=== PATIENT | male | born 1950 | race Caucasian/White ===

== ENCOUNTER 2016-08-17 07:38 | Emergency (ER) | payer OTHER ==
[2016-08-17] MEDS ORDERED: IOPAMIDOL 300 (61%) 150 ML VIAL IV ONE (07:39)
[2016-08-17] MEDS ORDERED: ONDANSETRON 4 MG/2ML 2 ML VIAL ONE (08:07)
[2016-08-17] MEDS ORDERED: SODIUM CHLORIDE 0.9% 1,000 ML ONE ×2 (08:08→11:10)
[2016-08-17 08:22] LABS: ABSOLUTE NEUTROPHIL COUNT 15.4 K/mm3 (1.8-7.7); BASO # 0.1 K/mm3 (0.0-0.2); BASO % 0.5 % (0.2-1.0); EOS % 0.1 % (0.9-2.9); HEMATOCRIT 53.1 % (32.0-52.0); HEMOGLOBIN 18.3 gm/l (14.0-18.0); IMM NEUT # 0.1 K/mm3 (0-0.2); IMM NEUT% 0.8 % (0-1); LYMPH % 11.2 % (15-45); MEAN CELL VOLUME 88.6 fl (80.0-94.0); MEAN CORPUSCULAR HEMOGLOBIN 30.6 pg (27.0-31.0); MEAN CORPUSCULAR HGB CONC 34.5 g/dl (33.0-37.0); MEAN PLATELET VOLUME 11.1 fl (7.4-10.4); MONO # 0.5 (0.0-0.8); MONO % 2.6 % (4-12); NEUT % 84.8 % (43-75); PLATELET COUNT 156 K/mm3 (130-400); RED CELL DISTRIBUTION WIDTH 13.4 % (11.5-14.5)
[2016-08-17] MEDS ORDERED: MAALOX/LIDO2%VISC/SIMETHICONE 40 ML BOT ONE (08:22)
[2016-08-17 08:44] LABS: ALB/GLOB RATIO 1.6 (>1.0); ALBUMIN 4.6 gm/dL (3.5-5.7); CALCIUM 10.4 mg/dL (8.6-10.3)
[2016-08-17 09:02] LABS: PLATELET ESTIMATE FEW PLT CLUMPS (NORMAL)
[2016-08-17 09:26] LABS: SPECIFIC GRAVITY 1.015 (1.001-1.030); URINE BILIRUBIN NEGATIVE (NEGATIVE); URINE BLOOD NEGATIVE (NEGATIVE); URINE GLUCOSE (UA) NEGATIVE (NEGATIVE); URINE LEUKOCYTE ESTERASE NEGATIVE (NEGATIVE); URINE NITRITE NEGATIVE (NEGATIVE); URINE PROTEIN NEGATIVE (NEGATIVE); URINE UROBILINOGEN NORMAL (0-1 mg/dl)
[2016-08-17 09:35] LABS: URINE APPEARANCE CLEAR; URINE COLOR YELLOW
--- NOTE | 2016-08-17 10:00 | CT ---
Name: URVASHI CORBETT Exam: CT abdomen pelvis with contrast Comparison: None History: Midabdominal pain Procedure: Helical CT using multidetector technique was applied to the abdomen and pelvis during intravenous administration of 125 cc Isovue-300. No oral contrast was given per ordering physician. An automated dose reduction technique was used to minimize patient radiation dose. Findings: CT abdomen (contrast enhanced): There is minimal dependent atelectasis in the lung bases. Heart is not enlarged. There is no pericardial effusion. Liver is normal size. There are 3, 1.4 cm and less hepatic cyst. Fatty infiltration liver is present. The gallbladder is nondistended. There is no suspicious biliary dilation. Pancreas, spleen, adrenal glands, IVC and portal vein are within normal limits. In the upper pole left kidney, there is a 3 to 4 mm linear nonobstructing calculus. There are approximately 10, 5 mm less nonobstructing right renal calculi. There is atherosclerosis of the abdominal aorta which is ectatic measuring 2.6 cm in diameter. There is a small hiatal hernia. The gastric fundus and body wall is somewhat thickened. Small bowel and colon are within normal limits. In the right lower quadrant, there is a partially calcified lesion measuring 2.0 x 1.5 x 1.5 cm. This is adjacent to several small surgical clips. There is no free air or free fluid. Within the right lower quadrant, there are several subcentimeter pericecal lymph nodes.. Advanced multilevel degenerative disc disease is present. There is unilateral pars defect to the right at L5. CT pelvis (contrast enhanced): Bladder is partially filled. There is superior retraction of the testes bilaterally and symmetrically. Prostate is minimally prominent and contains coarse calcifications. Seminal vesicles are symmetric. Small bowel and colon are normal. The appendix is not clearly identified. There is no free air, free fluid or suspicious adenopathy. Atherosclerotic calcifications are identified. Left common iliac artery is ectatic. There is focal aneurysmal dilation of the mid right common iliac artery 2.1 cm. Impression: 1. No bowel obstruction. Appendix is not identified. 2. Multiple nonobstructing right renal calculi. There is a single nonobstructing calculus on the left. 3. Mild ectasia of the distal abdominal aorta. 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 2 cm partially calcified solid lesion within the right lower quadrant with adjacent surgical clips. There are a few adjacent subcentimeter lymph nodes. Metastatic focus must be excluded. Correlation with prior imaging is strongly recommended. 5. Fatty liver with several cysts 6. Thick-walled stomach. This could be due to underdistention, gastritis or other etiology. Correlate clinically. 7. 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 There is unilateral pars defect to the right at L5 Note: Findings were discussed Dr. Lubin 1790 hours
[2016-08-17] MEDS ORDERED: PANTOPRAZOLE SODIUM 40 MG VIAL IV ONE (11:10)
== END 2016-08-17 12:38 | disposition home or self-care (01) ==
LOC: ED 07:38
DX: R19.00 Intra-abdominal and pelvic swelling, mass and lump, unspecified site (principal); F12.10 Cannabis abuse, uncomplicated; E78.00 Pure hypercholesterolemia, unspecified; I10 Essential (primary) hypertension; F17.210 Nicotine dependence, cigarettes, uncomplicated; Z85.00 Personal history of malignant neoplasm of unspecified digestive organ; Z79.899 Other long term (current) drug therapy
CPT/HCPCS: 83690; 85025; 80053; 81003; 74177; 96375; 99284 ×2; 96374; 96361; A9270; C9113; J2405; J7030 ×2; Q9967

== ENCOUNTER 2016-08-26 08:04 | Emergency (ER) | payer OTHER ==
[2016-08-26] MEDS ORDERED: PANTOPRAZOLE SODIUM 40 MG VIAL IV ONE (10:00)
[2016-08-26] MEDS ORDERED: ONDANSETRON 4 MG/2ML 2 ML VIAL ONE (10:00)
[2016-08-26] MEDS ORDERED: SODIUM CHLORIDE 0.9% 1,000 ML ONE (10:00)
[2016-08-26] MEDS ORDERED: KETOROLAC TROMETHAMINE 30 MG/ML 1 ML VIAL ONE (10:00)
[2016-08-26 10:21] LABS: ABSOLUTE NEUTROPHIL COUNT 14.9 K/mm3 (1.8-7.7); BASO # 0.1 K/mm3 (0.0-0.2); BASO % 0.4 % (0.2-1.0); EOS % 0.1 % (0.9-2.9); HEMATOCRIT 54.6 % (32.0-52.0); IMM NEUT # 0.1 K/mm3 (0-0.2); IMM NEUT% 0.7 % (0-1); LYMPH % 11.5 % (15-45); MEAN CELL VOLUME 89.1 fl (80.0-94.0); MEAN CORPUSCULAR HGB CONC 34.8 g/dl (33.0-37.0); MONO # 0.6 (0.0-0.8); MONO % 3.5 % (4-12); NEUT % 83.8 % (43-75); PLATELET COUNT 229 K/mm3 (130-400); RED CELL DISTRIBUTION WIDTH 13.7 % (11.5-14.5)
[2016-08-26 10:42] LABS: TROPONIN I < 0.01 ng/ml (0.0-0.06)
[2016-08-26 10:45] LABS: CKMB ISOENZYME 3.9 ng/ml (0.6-6.3)
[2016-08-26] MEDS ORDERED: MORPHINE SULFATE 4 MG/ML SYRINGE ONE (11:03)
[2016-08-26 11:07] LABS: ALB/GLOB RATIO 1.9 (>1.0); ALBUMIN 5.4 gm/dL (3.5-5.7)
[2016-08-26 11:15] LABS: SPECIFIC GRAVITY 1.015 (1.001-1.030); URINE BILIRUBIN NEGATIVE (NEGATIVE); URINE BLOOD NEGATIVE (NEGATIVE); URINE GLUCOSE (UA) NEGATIVE (NEGATIVE); URINE LEUKOCYTE ESTERASE NEGATIVE (NEGATIVE); URINE NITRITE NEGATIVE (NEGATIVE); URINE PROTEIN NEGATIVE (NEGATIVE); URINE UROBILINOGEN NORMAL (0-1 mg/dl)
[2016-08-26 11:16] LABS: URINE APPEARANCE CLEAR; URINE COLOR AMBER
[2016-08-26 11:29] LABS: AMPHETAMINES/METHAMPHETAMINES NEGATIVE (NEGATIVE); COCAINE NEGATIVE (NEGATIVE); MARIJUANA POSITIVE (NEGATIVE); METHADONE NEGATIVE (NEGATIVE); OPIATES NEGATIVE (NEGATIVE); TRICYCLIC ANTIDEPRESSANTS POSITIVE (NEGATIVE)
--- NOTE | 2016-08-26 11:29 | US ---
LIMITED ABDOMINAL ULTRASOUND HISTORY: Right upper quadrant pain. Limited sonography of the right upper quadrant performed. FINDINGS: GALLBLADDER LENGTH: 5 cm. GALLBLADDER WALL THICKNESS: 1.7 mm. GALLBLADDER CONTENT: No stones or sludge identified. SONOGRAPHIC LEVIN'S SIGN: Not elicited. COMMON BILE DUCT CALIBER: Nonenlarged by visual inspection. REGIONAL FREE FLUID: None. IMPRESSION: Contracted appearance of the gallbladder. No findings of cholelithiasis, wall thickening, or biliary dilatation. Findings discussed with Dr. Lombardi of the Emergency Medicine clinical service on 08/26/2016 at 1122 hours.
[2016-08-26 23:44] LABS: CALCIUM 10.3 mg/dL (8.6-10.3)
== END 2016-08-26 12:53 | disposition home or self-care (01) ==
LOC: ED 08:04
DX: R10.11 Right upper quadrant pain (principal); I10 Essential (primary) hypertension; R11.2 Nausea with vomiting, unspecified; F17.210 Nicotine dependence, cigarettes, uncomplicated
CPT/HCPCS: 83690; 85025; 82550; 82553; 80305; 80053; 81003; 84484; 76705; 96375 ×3; 99284; 96374; 96361 ×3; 99283; J2270; C9113; J1885; J2405; J7030